=== PATIENT | male | born 1980 | race Caucasian/White ===

== ENCOUNTER 2017-06-29 07:22 | Emergency (ER) | payer SELFPAY ==
[~2017-06-29] VITALS: Ht 180.3 cm; Wt 88.0 kg
[~2017-06-29 07:22] MED LIST: BENZ0.5T PO; ZYPR20TA PO
[2017-06-29 07:30] VITALS: BP 128/79; PULSE 98; RESP 18; TEMP 98.5; O2SAT 98
[2017-06-29] MEDS ORDERED: PROPARACAINE HCL 0.5% OPHT SOLN 15 ML BTL RIGHT EYE ONE (08:00)
[2017-06-29] MEDS ORDERED: IBUP1TAB7 PO (08:13)
[2017-06-29] MEDS ORDERED: ERYTOIN10 RIGHT EYE (08:13)
[2017-06-29] MEDS ORDERED: TRAM50TA PO (08:13)
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
[2017-06-29] MEDS ORDERED: traMADol HCL 50 MG TAB PO ONE (08:15)
== END 2017-06-29 08:35 | disposition home or self-care (01) ==
LOC: NEPD 07:22
DX: S05.01XA Injury of conjunctiva and corneal abrasion without foreign body, right eye, initial encounter (principal); W22.8XXA Striking against or struck by other objects, initial encounter
CPT/HCPCS: 99283